=== PATIENT | male | born 1960 | race Caucasian/White ===

== ENCOUNTER 2017-02-08 21:46 | Emergency (ER) | payer MEDICARE, OTHER | END 2017-02-09 | disposition home or self-care (01) | LOC: FER 21:46 | DX: S16.1XXA Strain of muscle, fascia and tendon at neck level, initial encounter (principal); S76.012A Strain of muscle, fascia and tendon of left hip, initial encounter; S06.9X9A Unspecified intracranial injury with loss of consciousness of unspecified duration, initial encounter; S40.812A Abrasion of left upper arm, initial encounter; M25.512 Pain in left shoulder; M25.562 Pain in left knee; H40.9 Unspecified glaucoma; F17.210 Nicotine dependence, cigarettes, uncomplicated; W01.10XA Fall on same level from slipping, tripping and stumbling with subsequent striking against unspecified object, initial encounter; Y92.512 Supermarket, store or market as the place of occurrence of the external cause | CPT/HCPCS: 70450; 72125; 72128; 72131; 72170; 73000; 73030; 73564; J2270 ==